=== PATIENT | male | born 1970 ===

== ENCOUNTER 2018-09-29 09:58 | Inpatient (IN) | payer OTHER ==
[~2018-09-29] VITALS: Ht 180.3 cm; Wt 68.0 kg
[~2018-09-29 09:58] MED LIST: MOTRIN800 MG PO; ULTRAM50 MG PO
== END 2018-10-05 16:51 | disposition home or self-care (01) | DRG 446 ==
LOC: ER 09:58 → SEC-K 23:29 → MEDI 23:29
PROC: BW40ZZZ Ultrasonography of Abdomen (ICD-10-PCS; 2018-09-29)
PROC: BF37ZZZ Magnetic Resonance Imaging (MRI) of Pancreas (ICD-10-PCS; 2018-09-29)
PROC: 0F798DZ Dilation of Common Bile Duct with Intraluminal Device, Via Natural or Artificial Opening Endoscopic (ICD-10-PCS; principal; 2018-10-04)
DX: K80.63 Calculus of gallbladder and bile duct with acute cholecystitis with obstruction (principal); K29.00 Acute gastritis without bleeding; D69.59 Other secondary thrombocytopenia; D64.89 Other specified anemias

== ENCOUNTER 2019-07-21 23:14 | Emergency (ER) | payer OTHER ==
[~2019-07-21] VITALS: Ht 180.3 cm; Wt 66.7 kg
[2019-07-22] MEDS ORDERED: OSEL75CA PO ×2 (07:23→07:26)
[2019-07-22] MEDS ORDERED: DOLOGESIC 500-1 EACH PO ×2 (07:25→07:26)
== END 2019-07-22 07:31 ==
LOC: ER 23:14
DX: J09.X2 Influenza due to identified novel influenza A virus with other respiratory manifestations (principal); R50.9 Fever, unspecified; R51 Headache

== ENCOUNTER 2023-05-13 07:47 | Outpatient (CLI) | payer OTHER ==
[~2023-05-13 07:47] MED LIST changes: +DOLOGESIC 500-1 EACH PO; +OSEL75CA PO
== END 2023-05-13 08:28 | disposition home or self-care (01) ==
LOC: RAD 07:47
PROVIDERS: ATTEND General Practice
DX: R10.11 Right upper quadrant pain (principal); R06.00 Dyspnea, unspecified

== ENCOUNTER 2023-05-13 07:55 | Outpatient (CLI) | payer OTHER | END 2023-05-13 13:28 | disposition home or self-care (01) | LOC: LAB 07:55 | PROVIDERS: ATTEND General Practice | DX: R94.5 Abnormal results of liver function studies (principal); E80.7 Disorder of bilirubin metabolism, unspecified ==